=== PATIENT | female | born 1955 | race American Indian/Alaskan Native ===

== ENCOUNTER 2018-01-20 19:54 | Emergency (ER) | payer OTHER ==
[2018-01-20 20:01] VITALS: BP 142/85; PULSE 88; RESP 18; TEMP 97.9; O2SAT 99
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
== END 2018-01-20 22:00 | disposition home or self-care (01) ==
LOC: H.ER 19:54
DX: F43.20 Adjustment disorder, unspecified (principal); F43.0 Acute stress reaction; Z88.0 Allergy status to penicillin